=== PATIENT | male | born 1935 | race American Indian/Alaskan Native ===

== ENCOUNTER 2018-10-11 12:55 | Emergency (ER) | payer SELFPAY ==
[2018-10-11] MEDS ORDERED: NACL 0.9% 500 ML 500 ML IV ONE (13:14)
[2018-10-11 14:09] LABS: Basophils % (Auto) 0.6 % (0.0-1.8); Eosinophils # (Auto) 0.1 K/mm3 (0.0-0.4); Eosinophils % (Auto) 2.4 % (0.0-4.3); Hematocrit 34.2 % (35.5-45.6); Hemoglobin 10.9 gm/dl (11.8-15.2); INR 1.13 (0.87-1.13); Lymphocytes # (Auto) 0.5 K/mm3 (1.2-5.4); Lymphocytes % (Auto) 12.5 % (13.4-35.0); Mean Corpuscular HGB Conc 32 % (32-34); Mean Corpuscular Hemoglobin 29 pg (28-32); Mean Corpuscular Volume 92 fl (84-94); Monocytes # (Auto) 0.4 K/mm3 (0.0-0.8); Monocytes % (Auto) 10.6 % (0.0-7.3); Platelet Count 123 K/mm3 (140-440); Red Blood Count 3.71 M/mm3 (3.65-5.03); Red Cell Distribution Width 15.1 % (13.2-15.2)
[2018-10-11 14:30] LABS: Creatine Kinase MB 1.6 ng/mL (0.0-4.0)
[2018-10-11 14:31] LABS: Alanine Aminotransferase 13 units/L (7-56); Albumin 3.9 g/dL (3.9-5); BUN/Creatinine Ratio 21; Blood Urea Nitrogen 32 mg/dL (9-20); Calcium 8.9 mg/dL (8.4-10.2); Hemolysis Index 7
--- NOTE | 2018-10-11 14:47 | XRay Report ---
FINAL REPORT EXAM: XR CHEST 1V AP HISTORY: Syncope TECHNIQUE: Frontal chest radiograph. PRIORS: None. FINDINGS: Aortic calculi are seen. The cardiomediastinal silhouette is normal. No focal consolidation. The lungs are hyperinflated. No pleural effusion. No pneumothorax. No acute osseous abnormality. IMPRESSION: No acute cardiopulmonary process. Findings of COPD.
--- NOTE | 2018-10-11 14:48 | Cat Scan Report ---
FINAL REPORT PROCEDURE: CT HEAD/BRAIN WO CON TECHNIQUE: Computerized tomography of the head was performed without contrast material. HISTORY: Syncope COMPARISON: No prior studies are available for comparison. FINDINGS: Brain: There is no evidence of intracranial hemorrhage. No parenchymal hemorrhage is seen. No mass lesions or mass effect is identified. No abnormal extra-axial fluid collections or masses are seen. 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 There is some decreased density seen in the periventricular white matter without mass effect. This i s fairly symmetric and does not exhibit any mass effect consistent with gliosis probably on the basis of microvascular disease or white matter changes of aging. Ventricles: The ventricles, sulcal pattern and fissures are prominent consistent with atrophy. Bones: No evidence of acute fracture. Paranasal sinuses: Visualized portions are clear. Mastoid air cells: clear IMPRESSION: No acute intracranial abnormalities are seen. There is evidence of moderate atrophy and mild gliosis. 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
--- NOTE | 2018-10-11 15:21 | Emergency Department Report ---
HPI - General Chief Complaint: Syncope Time Seen by Provider: 10/11/18 13:14 ED Past Medical Hx - Past Medical History Previous Medical History?: Yes Additional medical history: Pt states he takes several meds but not sure for what. - Social History Smoking Status: Never Smoker Substance Use Type: None ED Review of Systems ROS: Stated complaint: SYNCOPAL EPISODE Other details as noted in HPI Physical Exam - Physical Exam Vital Signs: Vital Signs 10/11/18 10/11/18 10/11/18 12:58 13:20 13:30 Temperature 98.1 F Pulse Rate 78 64 66 Respiratory 18 15 14 Rate Blood Pressure 141/52 134/59 O2 Sat by Pulse 98 99 99 Oximetry 10/11/18 10/11/18 10/11/18 13:56 14:00 14:16 Temperature Pulse Rate 77 63 58 L Respiratory 15 13 13 Rate Blood Pressure 132/37 134/60 135/51 O2 Sat by Pulse 97 98 99 Oximetry ED Course Vital Signs 10/11/18 10/11/18 10/11/18 12:58 13:20 13:30 Temperature 98.1 F Pulse Rate 78 64 66 Respiratory 18 15 14 Rate Blood Pressure 141/52 134/59 O2 Sat by Pulse 98 99 99 Oximetry 10/11/18 10/11/18 10/11/18 13:56 14:00 14:16 Temperature Pulse Rate 77 63 58 L Respiratory 15 13 13 Rate Blood Pressure 132/37 134/60 135/51 O2 Sat by Pulse 97 98 99 Oximetry ED Medical Decision Making - Lab Data Result diagrams: 10/11/18 13:32 10/11/18 13:32 Critical care attestation.: If time is entered above; I have spent that time in minutes in the direct care of this critically ill patient, excluding procedure time. ED Disposition Clinical Impression: Vaso vagal episode Disposition: DC-01 TO HOME OR SELFCARE Is pt being admited?: No Does the pt Need Aspirin: No Condition: Stable Instructions: Syncope (ED), Hypotension (ED), Near Syncope (ED), Lightheadedness (ED), Dizziness (ED) Referrals: PRIMARY CARE, [Primary Care Provider] - 3-5 Days
[2018-10-11 15:27] VITALS: BP 137/56
== END 2018-10-11 15:27 | disposition home or self-care (01) ==
LOC: ED 12:55
DX: R55 Syncope and collapse (principal)
CPT/HCPCS: 36415; 70450; 71045; 80053; 82550; 82553; 84484; 85025; 85610; 93005; 93010